=== PATIENT | female | born 1960 | race Caucasian/White ===

== ENCOUNTER 2018-06-22 07:13 | Emergency (ER) | payer BC ==
[2018-06-22 07:40] VITALS: BP 124/75
--- NOTE | 2018-06-22 07:58 | UC ---
Complaint Female HPI - HPI Summary HPI Summary: 58 year old female comes in today with a chief complaint of urinary urgency and not feeling well. The urine urgency is been going on for the last 3 days. Patient's been not feeling well for almost 2 weeks now. She's been having some body aches. Last couple days or abdomens been feeling uncomfortable with is no focal area of pain. No flank pain. No fever. She does have a sore on the roof of her mouth over the last couple of days. No cough or chest congestion. - History Of Current Complaint Chief Complaint: UCGU Stated Complaint: URINARY Time Seen by Provider: 06/22/18 07:16 Pain Intensity: 0 - Allergies/Home Medications Allergies/Adverse Reactions: Allergies Allergy/AdvReac Type Severity Reaction Status Date / Time Penicillins Allergy Swelling Verified 06/22/18 07:32 azithromycin [From Zithromax] AdvReac Headache Verified 06/22/18 07:32 Home Medications: Home Medications Albuterol HFA INHALER* [Ventolin HFA Inhaler*] 2 puff INH Q4H PRN 06/22/18 [ History Confirmed 06/22/18] Beclomethasone 80 MCG MDI(NF) [Qvar 80 MCG MDI(NF)] 1 puff INH DAILY 06/22/18 [ History Confirmed 06/22/18] Estradiol PATCH 0.1 MG/DAY* [Climara PATCH 0.1 MG/DAY*] 1 patch .SEE ORDER EVERY OTHER DAY 06/22/18 [History Confirmed 06/22/18] Fluticasone NASAL SPRAY 50MCG* [Flonase NASAL SPRAY 50MCG*] 2 spray BOTH NARES DAILY 06/22/18 [History Confirmed 06/22/18] Levothyroxine TAB* [Synthroid TAB*] 100 mcg PO DAILY 06/22/18 [History Confirmed 06/22/18] Montelukast Sodium TAB* [Singulair TAB*] 10 mg PO DAILY 06/22/18 [History Confirmed 06/22/18] PMH/Surg Hx/FS Hx/Imm Hx Previously Healthy: Yes Endocrine History: Hypothyroidism - Surgical History Surgical History: Yes Surgery Procedure, Year, and Place: total hysterectomy. Csection x3. parathyroid. laminectomy C1-T2 - Family History Known Family History: Negative: Diabetes - Social History Alcohol Use: Rare Substance Use Type: None Smoking Status (MU): Never Smoked Tobacco Review of Systems Constitutional: Negative Skin: Negative Eyes: Negative ENT: Other - see hpi Respiratory: Negative Cardiovascular: Negative Gastrointestinal: Other - see hpi Genitourinary: Urgency - see hpi Motor: Negative Neurovascular: Negative Musculoskeletal: Negative Neurological: Negative Is Patient Immunocompromised?: No All Other Systems Reviewed And Are Negative: Yes Physical Exam Triage Information Reviewed: Yes Appearance: Well-Appearing, No Pain Distress, Well-Nourished Vital Signs: Initial Vital Signs Temp 97.1 F 06/22/18 07:34 Pulse 63 06/22/18 07:34 Resp 14 06/22/18 07:34 BP 124/75 06/22/18 07:34 Pulse Ox 99 06/22/18 07:34 Vital Signs Reviewed: Yes Eye Exam: Normal Eyes: Positive: Conjunctiva Clear ENT: Positive: Nasal drainage, TMs normal, Other - On the roof of the mouth on the palate there is a area of several 1-2 mm ulcerations. Posterior pharynx is benign. Neck exam: Normal Neck: Positive: Supple Respiratory Exam: Normal Respiratory: Positive: Lungs clear, Normal breath sounds, No respiratory distress Cardiovascular: Positive: RRR Abdomen Description: Positive: Nontender, Soft. Negative: CVA Tenderness (R), CVA Tenderness (L) Bowel Sounds: Positive: Present Musculoskeletal Exam: Normal Musculoskeletal: Positive: Strength Intact, ROM Intact Neurological Exam: Normal Neurological: Positive: Alert, Muscle Tone Normal Psychological Exam: Normal Psychological: Positive: Age Appropriate Behavior Skin Exam: Normal Complaint Female Dx - Course Course Of Treatment: Urine positive for trace leukocytes we'll treat with cephalexin. Patient has had cephalexin in the past without problem. The plan is to follow-up with her primary care doctor if not improved improved or return for recheck here. - Differential Dx/Diagnosis Provider Diagnoses: uti Discharge - Sign-Out/Discharge Documenting (check all that apply): Patient Departure All imaging exams completed and their final reports reviewed: No Studies - Discharge Plan Condition: Stable Disposition: HOME Prescriptions: Cephalexin CAP* [Keflex CAP*] 500 mg PO TID #21 cap Patient Education Materials: Urinary Tract Infection in Women (ED) Referrals: Anya La MD [Primary Care Provider] - Additional Instructions: FOLLOW UP WITH YOUR DOCTOR IF NOT COMPLETELY IMPROVED. GET RECHECKED FOR ANY WORSENING OF YOUR CONDITION OR QUESTIONS OR CONCERNS. - Billing Disposition and Condition Condition: STABLE Disposition: Home
--- NOTE | 2018-06-24 07:04 | UC ---
- Progress Note Progress Note: please notify pt NO UTI STOP antibiotic recheck with PCP if not better jld Discharge - Sign-Out/Discharge Documenting (check all that apply): Post-Discharge Follow Up All imaging exams completed and their final reports reviewed: No Studies - Discharge Plan Condition: Stable Disposition: HOME Prescriptions: Cephalexin CAP* [Keflex CAP*] 500 mg PO TID #21 cap Patient Education Materials: Urinary Tract Infection in Women (ED) Referrals: Anya La MD [Primary Care Provider] - Additional Instructions: FOLLOW UP WITH YOUR DOCTOR IF NOT COMPLETELY IMPROVED. GET RECHECKED FOR ANY WORSENING OF YOUR CONDITION OR QUESTIONS OR CONCERNS. - Billing Disposition and Condition Condition: STABLE Disposition: Home
== END 2018-06-22 08:07 | disposition home or self-care (01) ==
LOC: UCCORT 07:13
DX: N39.0 Urinary tract infection, site not specified (principal); E03.9 Hypothyroidism, unspecified; Z88.0 Allergy status to penicillin; Z88.1 Allergy status to other antibiotic agents
CPT/HCPCS: 81003; 87086; 99202; G0463